=== PATIENT | female | born 1995 | race Caucasian/White ===

== ENCOUNTER 2023-05-06 21:31 | Emergency (ER) | payer OTHER, SELFPAY ==
[2023-05-06 21:36] VITALS: BP 134/78; PULSE 68; RESP 18; TEMP 36.6; O2SAT 99; BMI 23.0
[2023-05-06 22:02] LABS: Appearance Urine Clear (Clear); Color Urine Yellow (Yellow)
[2023-05-06 22:03] LABS: Bilirubin Urine Negative (Negative); Blood Urine Negative (Negative); Glucose Urine Negative (Negative); Ketones Urine Negative (Negative); Leukocyte Esterase Urine Negative (Negative); Nitrite Urine Negative (Negative); Protein Urine Negative (Negative); RBC Urine 0-2 (0-2); Specific Gravity Urine 1.025 (1.000-1.030); Squamous Epithelial Cell Urine Few (None-Few); Urobilinogen Urine 0.2 (0.2-1.0); WBC Urine 0-2 (0-5)
--- NOTE | 2023-05-06 22:03 | ED_ITS ---
HPI - General Adult General Chief complaint: Abdominal Pain Stated complaint: Abdominal pain Time Seen by Provider: 05/06/23 21:48 History of Present Illness HPI narrative: CC: Abdominal Pain pt. with symptoms since tuesday. denies fevers, n/v, dirrhea. pt. states she could be constipated also. 27-year-old woman presenting to the emergency department. Beginning about 5 days ago started to have some burning cramping pain in the upper abdomen. She normally has bowel movements 2 - 3 times a day but has not had a bowel movement over the last 3 days now. She did double up on control having intended to initiate oral contraceptives 7 days ago then 6 days ago took 2 pills I believe to catch up; waking the next morning with some pain in the right upper to epigastric abdomen. No history of food intolerances. Has had no fever. As above no diarrhea. No dysuria. She wonders if she might be constipated. Has been taking singular daily dose of MiraLax over the last 3 days. No fever. Related Data Home Medications Medication Instructions Recorded Confirmed No Known Home Medications 05/06/23 05/06/23 Allergies Allergy/AdvReac Type Severity Reaction Status Date / Time No Known Drug Allergies Allergy Verified 05/06/23 21:39 Review of Systems Status of ROS: Reports: 6 or more systems reviewed and unremarkable except as noted in History and below [facility] Medical History No significant past medical history Surgical History No significant past surgical history Social History Smoking Status: Never smoker Second hand tobacco smoke exposure: No How often do you have a drink containing alcohol: never How often do you have six or more drinks on one occasion: Never AUDIT-C Alcohol total score: 0 Non-prescribed substance use: denies use Exam Narrative: Exam Narrative: Very pleasant. Calm. Breathing easily. Oropharynx is moist. Lungs appear to be clear. Heart in regular rate and rhythm without murmur rub or gallop. Abdomen with bowel sounds present. Mildly tender to palpation in the right upper quadrant generally of the abdomen. No masses appreciated. No flank pain. Extremities are well perfused and without edema. Const: Vital Signs, click to edit/add: Vital Signs - 24 hr 05/06/23 21:36 05/06/23 23:31 05/06/23 23:32 Temperature 97.9 F 98.2 F 98.2 F Pulse Rate [Right Pulse Oximeter] 68 71 71 Respiratory Rate 18 18 18 Blood Pressure [Ri ght Upper Arm] 134/78 125/72 125/72 Pulse Oximetry 99 99 Oxygen Delivery Me thod Room Air Room Air Documenting provider has reviewed patient's vital signs: yes Course Vital Signs Vital signs: Initial Vital Signs Temperature 97.9 F 05/06/23 21:36 Temperature Source Temporal Artery Scan 05/06/23 21:36 Pulse Rate 68 05/06/23 21:36 Respiratory Rate 18 05/06/23 21:36 Blood Pressure 134/78 05/06/23 21:36 Blood Pressure Mean 96 05/06/23 21:36 Blood Pressure Position Sitting 05/06/23 21:36 Pulse Oximetry 99 05/06/23 21:36 Oxygen Delivery Method Room Air 05/06/23 21:36 Vital Signs Temperature 97.9 F 05/06/23 21:36 Pulse Rate 68 05/06/23 21:36 Respiratory Rate 18 05/06/23 21:36 Blood Pressure 134/78 05/06/23 21:36 Pulse Oximetry 99 05/06/23 21:36 Oxygen Delivery Method Room Air 05/06/23 21:36 Temperature 98.2 F 05/06/23 23:32 Pulse Rate 71 05/06/23 23:32 Respiratory Rate 18 05/06/23 23:32 Blood Pressure 125/72 05/06/23 23:32 Pulse Oximetry 99 05/06/23 23:31 Oxygen Delivery Method Room Air 05/06/23 23:31 Medical Decision Making MDM Narrative Medical decision making narrative: This seems to be described to be constipation. I think that is consistent with her accounting. I am inclined to agree with her expressed concern. She has not had food intolerances to suggest irritable bowel or gallbladder disease or chronic heartburn/GERD. Does not appear to be describing the degree of discomfort I might expect with cholecystitis nor is that present on physical exam. Absent Melendez's as well. Possibly some mild heartburn. These symptoms in general are of a brief course. I proposed starting with abdominal x-ray in if this does not appear to confirm suspicions then proceeding with further evaluation. Urinalysis and HCG also collected and WNL/negative In rather busy emergency department I felt I was a little slow to return with my assessment of her x-ray. I presented printed x-ray for review. I did review these images myself prior. Does appear to have a good deal of stool in the abdomen without concerning distension or gas pattern. Seems perhaps like more of the stool burden is on the right side/right upper where she has more discomfort. Radiology over-read here--- Findings/Impression: Bowel: Bowel pattern is normal. Moderate colonic stool burden. Soft tissues: No sign of free air. No sign of soft tissue mass. No suspicious calcifications. Bones: Unremarkable for age. In discussing findings and treatment plan, Pepper became tearful. She had been asking about colon cancer noting that that has been present in her family. I had said that was doubtful and at this point this is a rather acute process. When pressed admitted she thought I had been rude in my discussion; that this is what was upsetting. All this conversation occurred in the presence of her significant other. I apologized; that this was not my intent. Further that we could proceed with more extensive evaluation. She said that was okay but was clearly upset at this point and appeared anxious to depart the emergency department. I had discussed proposed treatment. See patient discharge plan Lab Data Lab results reviewed: Yes I reviewed the patient's lab results Labs: Lab Results 05/06/23 Range/Units 21:40 Urine Color Yellow (Yellow) Urine Appearance Clear (Clear) Urine pH 6.0 (5.0-8.5) Ur Specific [place] 1.025 (1.000-1.030) Urine Protein Negative (Negative) Urine Glucose (UA) Negative (Negative) Urine Ketones Negative (Negative) Urine Blood Negative (Negative) Urine Nitrite Negative (Negative) Urine Bilirubin Negative (Negative) Urine Urobilinogen 0.2 (0.2-1.0) Ur Leukocyte Esterase Negative (Negative) Urine RBC 0-2 (0-2) Urine WBC 0-2 (0-5) Urine WBC Clumps None (None) Ur Squamous Epith Cells Few (None-Few) Urine Bacteria None (None) Urine HCG, Qual Negative (Negative) Discharge Plan Discharge Clinical Impression: Right sided abdominal pain, Constipation Patient Disposition: Home w/ Parent or Adult Condition: Stable Additional Instructions: As I said there is certainly more evaluation we can do, but I do think constipation, given this change in your normal at least how you have described it, is a reasonable explanation for your abdominal pain. There is no evidence of an obstruction on the x-ray. If you are having formed or firmer stools would consider placing an enema and repeating in an hour if no good result. Otherwise drinking a bottle or half a bottle of magnesium citrate and repeating the next morning should be helpful. However since you already have MiraLax or MiraLax equivalent, I would take 3 doses of that perhaps by noon or at least 3 doses over the course of the day and adjust to stool consistency over a week, maybe 2. Be sure you're getting enough free water in your diet probably by drinking 2-3 L of water daily. See also enclosed FruitLax recipe. Return/be seen for marked increase in persistent pain, repeated vomiting, associated fever. Be seen also for symptoms continuing another week. Prescriptions: No Action No Known Home Medications Follow Up/Referrals: Provider,Not a Local [Primary Care Provider] - Stand Alone Forms: MyHealth Info Instructions
--- NOTE | 2023-05-06 22:08 | CRLHL7_ITS ---
For Patients: As a result of the Century Cures Act, medical imaging exams and procedure reports are released immediately into your electronic medical record. You may view this report before your referring provider. If you have questions, please contact your health care provider. Indication: Abdominal pain. Technique: Abdomen 2 view. Comparison: None. Findings/Impression: Bowel: Bowel pattern is normal. Moderate colonic stool burden. Soft tissues: No sign of free air. No sign of soft tissue mass. No suspicious calcifications. Bones: Unremarkable for age. Dictated by Preston Nieto MD @ 05/06/2023 10:28:53 PM (Electronically Signed)
[2023-05-06 22:14] LABS: Ur HCG Qualitative* Negative (Negative)
[2023-05-06 23:31] VITALS: BP 125/72; PULSE 71; RESP 18; TEMP 36.8; O2SAT 99
[2023-05-06 23:32] VITALS: BP 125/72; PULSE 71; RESP 18; TEMP 36.8
== END 2023-05-06 23:32 | disposition home or self-care (01) ==
PROVIDERS: Emergency Provider Family Medicine
DX: K59.00 Constipation, unspecified (principal); R10.11 Right upper quadrant pain
CPT/HCPCS: 74018; 81001; 81003; 81025; 99283; 99284